=== PATIENT | male | born 1935 | race African-American/Black ===

== ENCOUNTER 2017-01-18 08:38 | Emergency (ER) | payer MEDICARE, OTHER ==
[~2017-01-18] VITALS: Ht 175.3 cm; Wt 90.0 kg
[~2017-01-18 08:38] MED LIST: AMLO10 PO; ASPI325T PO; BYST10TA2 PO; CALCTAB54 PO; CARD8TAB6 PO; DOCU1CAP39 PO; FURO20 PO; HYDR-3533 PO; ISOS30 PO; KPHOS250 PO; MAGN400T PO; MYCO500T PO; PERC5TAB12 PO; PRAV40TA2 PO; PRED-1 PO; PROG5CAP PO; PROT40TA PO
[2017-01-18 08:40] VITALS: BP 136/65; PULSE 82; RESP 20; TEMP 97.8; O2SAT 99
[2017-01-18 08:50] VITALS: BP 138/61; PULSE 75; RESP 18; O2SAT 99
[2017-01-18] MEDS ORDERED: CYCLOBENZAPRINE HCL 10 MG TAB PO ONE (09:15)
[2017-01-18] MEDS ORDERED: PROT40TA PO (09:15)
[2017-01-18] MEDS ORDERED: ISOS10TA3 PO (09:15)
[2017-01-18] MEDS ORDERED: CARD8TAB2 PO (09:15)
[2017-01-18] MEDS ORDERED: IBUP200T2 PO (09:15)
[2017-01-18] MEDS ORDERED: PRED5TAB PO (09:15)
[2017-01-18] MEDS ORDERED: CALC500C6 CHEW (09:15)
[2017-01-18] MEDS ORDERED: COLA100C3 PO (09:15)
[2017-01-18] MEDS ORDERED: ACETAMINOPHEN 325 MG TAB PO ONE (09:15)
[2017-01-18] MEDS ORDERED: K-PHTAB PO (09:15)
[2017-01-18] MEDS ORDERED: FURO20TA PO (09:15)
[2017-01-18] MEDS ORDERED: ISOS30TA3 PO (09:15)
[2017-01-18] MEDS ORDERED: AMLO10 PO (09:15)
[2017-01-18] MEDS ORDERED: MYCO500T PO (09:15)
[2017-01-18] MEDS ORDERED: MAGN400T2 PO (09:15)
[2017-01-18] MEDS ORDERED: ASPI325T PO (09:15)
[2017-01-18] MEDS ORDERED: TACR1CAP PO (09:15)
[2017-01-18] MEDS ORDERED: BYST10TA2 PO (09:15)
[2017-01-18] MEDS ORDERED: PRAV40TA2 PO (09:15)
--- NOTE | 2017-01-18 10:04 | PD ---
HPI Chief Complaint: Back/ Neck Pain or Injury Time Seen by Provider: 09:06 Travel History International Travel<30 days: No Contact w/Intl Traveler<30days: No Traveled to known affect area: No History of Present Illness HPI Patient is a 81 year old male who comes in complaining of lower back pain. He has had back pain for the past 2 years. He says it occasionally flares up and he takes an oxycodone for it. He says for the past two days he has had increasing pain. He has been taking Ibuprofen or Tylenol with some relief of his symptoms. He denies numbness or tingling in his extremities. He denies any incontinence or urinary problems. PFSH Past Medical History Arthritis: No Asthma: Yes Autoimmune Disease: No Blood Disorders: No Heart Rhythm Problems: No Cancer: No Cardiovascular Problems: No High Cholesterol: No Chemotherapy: No Chest Pain: No Congestive Heart Failure: Yes COPD: No Cerebrovascular Accident: No Diabetes: No Dialysis: Yes ([facility]) Diminished Hearing: No Endocrine: No GERD: Yes Gout: Yes Genitourinary: No Hiatal Hernia: No Hypertension: Yes Immune Disorder: No Kidney Stones: No Musculoskeletal: No Neurologic: No Psychiatric: No Reproductive: No Respiratory: No Migraines: No Myocardial Infarction: No Radiation Therapy: No Renal Failure: Yes Seizures: No Sickle Cell Disease: No Sleep Apnea: No Thyroid Disease: No Tetanus Vaccination: Unknown Influenza Vaccination: Yes Past Surgical History Abdominal Surgery: No AICD: No Arteriovenous Shunt: Yes (LEFT UPPER WRIST) 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 Cardiac Surgery: No Ear Surgery: No Endocrine Surgery: No Eye Surgery: No Genitourinary Surgery: Yes (kidney transplant) Insulin Pump: No Joint Replacement: No Oral Surgery: No Pacemaker: No Prostatectomy: Yes Thoracic Surgery: No Other Surgery: Yes ( 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) Social History Alcohol Use: No Tobacco Use: No Substance Use: No Allergies-Medications (Allergen,Severity, Reaction): Coded Allergies: Robitussin (Verified Allergy, Severe, Swelling, 01/18/17) Reported Meds & Prescriptions Reported Meds & Active Scripts Active Tramadol (Tramadol HCl) 50 Mg Tab 50 Mg PO Q6H PRN Reported Ibuprofen 200 Mg Tab 400 Mg PO Q6H PRN Furosemide 20 Mg Tab 20 Mg PO 2XWEEK PRN K-Phos (Potassium Phosphate Monobasic) 500 Mg Tab 500 Mg PO DAILY Pravastatin 40 Mg Tab 40 Mg PO DAILY Aspirin 325 Mg Tab 325 Mg PO DAILY Colace (Docusate Sodium) 100 Mg Cap 100 Mg PO BID Calcium Carbonate 500 Mg Chew 500 Mg CHEW BID 500 mg calcium carbonate (200 mg elemental calcium) Isosorbide Mononitrate ER (Isosorbide Mononitrate) 30 Mg Liza 30 Mg PO DAILY Cardura (Doxazosin Mesylate) 8 Mg Tab 8 Mg PO DAILY Bystolic (Nebivolol) 10 Mg Tab 10 Mg PO DAILY Norvasc (Amlodipine Besylate) 10 Mg Tab 10 Mg PO DAILY Protonix (Pantoprazole Sodium) 40 Mg Tab 40 Mg PO DAILY Magnesium Oxide 400 Mg Tab 800 Mg PO BID Prednisone 5 Mg Tab 5 Mg PO DAILY Mycophenolate (Mycophenolate Mofetil) 500 Mg Tab 1,000 Mg PO BID Tacrolimus 1 Mg Cap 1 Mg PO Q12H Review of Systems General / Constitutional: No: Fever, Chills HENT: No: Headaches, Lightheadedness Cardiovascular: No: Chest Pain or Discomfort Respiratory: No: Shortness of Breath Gastrointestinal: No: Nausea, Vomiting Genitourinary: No: Dysuria, Incontinence Musculoskeletal: Positive: Pain Skin: No Rash, No Change in Pigmentation Neurologic: No: Paresthesia, Incontinence, Sensory Disturbance Physical Exam Narrative GENERAL: Awake and alert, in no acute distress. SKIN: Warm and dry. HEAD: Atraumatic. Normocephalic. EYES: Pupils equal and round. No scleral icterus. NECK: Trachea midline. No JVD. CARDIOVASCULAR: Regular rate and rhythm. No murmur appreciated. RESPIRATORY: No accessory muscle use. Clear to auscultation. Breath sounds equal bilaterally. MUSCULOSKELETAL: No obvious deformities. No clubbing. No cyanosis. No edema. No CVA tenderness. Tender to palpation of left sacroiliac joint as well as the lower lumbar spine. No pain with straight leg raise. NEUROLOGICAL: Awake and alert. No obvious cranial nerve deficits. Motor grossly within normal limits. Normal speech. No saddle anesthesia. Data Data Last Documented VS Vital Signs Date Time Temp Pulse Resp B/P Pulse Ox O2 Delivery O2 Flow Rate FiO2 01/18/17 12:10 74 16 121/64 99 Room Air 01/18/17 08:40 97.8 Orders Spine, Lumbar Comp W/Obliq (01/18/17 ) Sacrum And Coccyx (01/18/17 ) Acetaminophen (Tylenol) (01/18/17 09:15) Cyclobenzaprine (Flexeril) (01/18/17 09:15) Tramadol (Ultram) (01/18/17 10:45) MDM Medical Decision Making Medical Screen Exam Complete: Yes Emergency Medical Condition: Yes Medical Record Reviewed: Yes Differential Diagnosis Sciatica versus muscle strain versus compression fracture Narrative Course Patient is a 81-year-old male with history of chronic back pain, who comes in complaining of worsening pain for 2 days. Patient has no neurologic symptoms. Patient given Tylenol and Flexeril for pain. X-ray obtained of the lumbar and sacral spine. This shows severe degenerative changes. Patient informed of the results. Advised he likely needs to have an MRI as an outpatient. Given tramadol for continued pain. We'll discharge with prescription for tramadol. Advised to return to the ED as needed for any worsening symptoms. Advised follow-up with his primary doctor. Diagnosis Primary Impression: Sciatica Qualified Code: M54.32 - Sciatica of left side Patient Instructions: General Instructions, Sciatica (ED) Additional Instructions: Follow up with your doctor, you should have an MRI done as an outpatient. Take Tylenol for pain, or Tramadol for severe pain. Return to the ED as needed for any worsening symptoms. Scripts Tramadol 50 Mg Tab50 Mg PO Q6H PRN (PAIN) #10 TAB Ref 0 Prov:Marlene Waldron MD 01/18/17 Disposition: 01 DISCHARGE HOME Condition: Stable Marlene Waldron MD Jan 18, 2017 10:04
--- NOTE | 2017-01-18 10:32 | RADRPT ---
EXAM DATE/TIME: 01/18/2017 09:54 [facility] COMPARISON: No previous studies available for comparison. INDICATIONS: Patient states no known injury. Back has been hurting for years and has gotten to th e point he could barely walk for two days. MEDICAL HISTORY: None. SURGICAL HISTORY: None. ENCOUNTER: Initial ACUITY: >1 year PAIN SCORE: 9/10 LOCATION: Bilateral L-spine. FINDINGS: Moderate thoracolumbar scoliosis is noted. Vacuum changes are noted at L2-3, 3-4 and 4-5. Extensive degenerative changes are present in facets. There is minimal loss of disc space height at L3 and L4 . Degenerative changes seen in both SI joints. CONCLUSION: Extensive degenerative changes as described above. Lumbar spinal stenosis would be a consideration. MRI may be of help. Rasheed Roberts MD FACR on January 18, 2017 at 10:24 Board Certified Radiologist. This report was verified electronically.
[2017-01-18] MEDS ORDERED: traMADol HCL 50 MG TAB PO ONE (10:45)
--- NOTE | 2017-01-18 10:51 | RADRPT ---
EXAM DATE/TIME: 01/18/2017 09:58 [facility] COMPARISON: No previous studies available for comparison. INDICATIONS : Patient states no known injury. Back has been hurting for years and has gotten to the point he could barely walk for two days. MEDICAL HISTORY : None. SURGICAL HISTORY : None. ENCOUNTER: Initial ACUITY: >1 year PAIN SCORE: 9/10 LOCATION: Bilateral Sacrum/Coccyx FINDINGS: There are extensive degenerative changes in the lower lumbar spine and about both SI joints. Alignment is anatomic. Fracture is not appreciated. CONCLUSION: Extensive degenerative changes. Rasheed Roberts MD FACR on January 18, 2017 at 10:26 Board Certified Radiologist. This report was verified electronically.
[2017-01-18] MEDS ORDERED: TRAM50TA PO (11:49)
[2017-01-18 12:10] VITALS: BP 121/64; PULSE 74; RESP 16; O2SAT 99
== END 2017-01-18 12:28 | disposition home or self-care (01) ==
LOC: NEPE 08:38
DX: M54.32 Sciatica, left side (principal); I10 Essential (primary) hypertension; I50.9 Heart failure, unspecified; M10.9 Gout, unspecified; Z94.0 Kidney transplant status
CPT/HCPCS: 72110; 72220; 99283